=== PATIENT | female | born 1995 | race Caucasian/White ===

== ENCOUNTER 2020-01-28 14:03 | Emergency (ER) | payer BC, OTHER | END 2020-01-28 16:42 | disposition home or self-care (01) | LOC: JVIRT 14:03 | DX: Z03.818 Encounter for observation for suspected exposure to other biological agents ruled out (principal) | CPT/HCPCS: C9803; G2012-GT; U0003 ==

== ENCOUNTER 2020-02-09 16:46 | Emergency (ER) | payer BC, OTHER | END 2020-02-09 17:52 | disposition home or self-care (01) | LOC: JVIRT 16:46 | DX: U07.1 COVID-19 (principal) | CPT/HCPCS: C9803; G2012-GT; Q3014-GT; U0003 ==